=== PATIENT | female | born 2000 | race American Indian/Alaskan Native ===

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

== ENCOUNTER 2023-06-08 23:00 | Inpatient (IN) | payer MEDICAID ==
[2023-06-08 23:52] LABS: HEMATOCRIT 32.4 % (37.0-47.0); HEMOGLOBIN 10.4 g/dL (12.0-16.0); MEAN CORPUSCULAR HEMOGLOBIN 27.7 pg (27.0-34.0); MEAN CORPUSCULAR HGB CONC 32.1 g/dL (33.0-35.0); MEAN CORPUSCULAR VOLUME 86.4 fL (80-100); RED BLOOD CELL COUNT 3.75 10^6/uL (4.2-5.4); WHITE BLOOD CELL COUNT,WBC 6.8 10^3/uL (5.0-10.0)
[2023-06-09] MEDS ORDERED: Sodium Chloride 0.9% 10 ML Syringe FLUSH PRN ×2 (00:03→07:09)
[2023-06-09] MEDS ORDERED: Lidocaine 1% 30 ML SDV INJECT ONE (00:03)
[2023-06-09] MEDS ORDERED: Carboprost Tromethamine 250 MCG/1 ML Amp IM PRN (00:03)
[2023-06-09] MEDS ORDERED: Misoprostol 400 MCG (4 X 100 MCG TAB) RECTAL PRN (00:03)
[2023-06-09] MEDS ORDERED: Lactated Ringers 1,000 ML IV ONE (00:03)
[2023-06-09] MEDS ORDERED: Tranexamic Acid 1,000 MG in Sodium Chloride 0.9% 100 ML IV PRN (00:03)
[2023-06-09] MEDS ORDERED: Ondansetron 4 MG/2 ML SDV IVPUSH PRN (00:03)
[2023-06-09] MEDS ORDERED: Methylergonovine 0.2 MG/1 ML Amp IM PRN (00:03)
[2023-06-09] MEDS ORDERED: Lactated Ringers 1,000 ML IV SCH (00:15)
[2023-06-09] MEDS: Oxytocin/Normal Saline 30 UNIT/500 ML BAG IV SCH ×2 (00:27→07:56)
[2023-06-09] MEDS ORDERED: Witch Hazel Medicated Pads 100/Jar TOP PRN (07:09)
[2023-06-09] MEDS ORDERED: Simethicone 80 MG Tab.Chew PO PRN (07:09)
[2023-06-09] MEDS ORDERED: Zolpidem 5 MG Tab PO PRN (07:09)
[2023-06-09] MEDS ORDERED: Oxytocin 10 Units/1 ML SDV IM PRN (07:09)
[2023-06-09] MEDS ORDERED: Benzocaine/Menthol 20%-0.5% Spray 78 GM Cannister TOP PRN (07:09)
[2023-06-09] MEDS: Ferrous Sulfate 325 MG Tab PO SCH (08:46)
[2023-06-09] MEDS: Prenatal Multivitamin with Calcium/Folic Acid/Iron Tab PO SCH (08:46)
[2023-06-09] MEDS: Docusate Sodium 100 MG Cap PO PRN (08:46)
[2023-06-09] MEDS: Ibuprofen 800 MG Tab PO PRN ×2 (08:46→18:31)
[2023-06-09] MEDS: Acetaminophen 325 MG Tab PO PRN (21:07)
[2023-06-10 07:07] LABS: HEMATOCRIT 32.2 % (37.0-47.0); HEMOGLOBIN 9.9 g/dL (12.0-16.0); MEAN CORPUSCULAR HEMOGLOBIN 26.9 pg (27.0-34.0); MEAN CORPUSCULAR HGB CONC 30.7 g/dL (33.0-35.0); MEAN CORPUSCULAR VOLUME 87.5 fL (80-100); RED BLOOD CELL COUNT 3.68 10^6/uL (4.2-5.4); WHITE BLOOD CELL COUNT,WBC 11.5 10^3/uL (5.0-10.0)
[2023-06-10] MEDS: Prenatal Multivitamin with Calcium/Folic Acid/Iron Tab PO SCH (08:35)
[2023-06-10] MEDS: Docusate Sodium 100 MG Cap PO PRN (08:35)
[2023-06-10] MEDS: Ferrous Sulfate 325 MG Tab PO SCH (08:35)
[2023-06-10] MEDS: Acetaminophen 325 MG Tab PO PRN (08:36)
[2023-06-10] MEDS: Ibuprofen 800 MG Tab PO PRN (16:17)
[2023-06-11] MEDS: Ibuprofen 800 MG Tab PO PRN (03:34)
[2023-06-11] MEDS: Ferrous Sulfate 325 MG Tab PO SCH (08:44)
[2023-06-11] MEDS: Docusate Sodium 100 MG Cap PO PRN (08:44)
[2023-06-11] MEDS: Prenatal Multivitamin with Calcium/Folic Acid/Iron Tab PO SCH (08:44)
[2023-06-11] MEDS: Acetaminophen 325 MG Tab PO PRN (08:44)
== END 2023-06-11 11:10 | disposition home or self-care (01) | DRG 806 ==
LOC: DL.OBCHECK 23:00 → DL.OB 23:34 → OBSVTOIN 06-09 06:52
PROVIDERS: ADMIT Family Medicine; ATTEND Family Medicine
PROC: 10E0XZZ Delivery of Products of Conception, External Approach (ICD-10-PCS; principal; 2023-06-09)
DX: O42.02 Full-term premature rupture of membranes, onset of labor within 24 hours of rupture (principal); D62 Acute posthemorrhagic anemia; Z37.0 Single live birth; O72.1 Other immediate postpartum hemorrhage; O90.81 Anemia of the puerperium; O71.82 Other specified trauma to perineum and vulva; Z3A.38 38 weeks gestation of pregnancy; O99.810 Abnormal glucose complicating pregnancy; O16.4 Unspecified maternal hypertension, complicating childbirth
CPT/HCPCS: 36415; 51701; 59409; 85027; A9270-GY; C1729; J2405; J2590; J3490; J7120